=== PATIENT | male | born 1965 ===

== ENCOUNTER → 2021-03-16 10:04 | Outpatient (CLI) | payer OTHER | END | disposition home or self-care (01) | LOC: LAB 10:04 | PROVIDERS: ATTEND Emergency Medicine Pediatric Emergency Medicine | DX: Z03.818 Encounter for observation for suspected exposure to other biological agents ruled out (principal) ==

== ENCOUNTER → 2021-05-28 | Outpatient (CLI) | payer OTHER | END | disposition home or self-care (01) | LOC: LAB 08:43 | PROVIDERS: ATTEND Emergency Medicine Pediatric Emergency Medicine | DX: Z03.818 Encounter for observation for suspected exposure to other biological agents ruled out (principal) ==

== ENCOUNTER 2021-07-02 09:20 | Outpatient (CLI) | payer OTHER | END 2021-07-02 09:53 | disposition home or self-care (01) | LOC: LAB 09:20 | PROVIDERS: ATTEND General Practice | DX: U07.1 COVID-19 (principal); R05 Cough; R06.02 Shortness of breath ==

== ENCOUNTER 2021-07-02 11:00 | Outpatient (CLI) | payer OTHER | END 2021-07-02 13:00 | disposition home or self-care (01) | LOC: ASH CLINIC 11:00 | PROVIDERS: ATTEND General Practice | DX: Z23 Encounter for immunization (principal); U07.1 COVID-19 ==

== ENCOUNTER 2021-07-13 06:58 | Outpatient (CLI) | payer OTHER | END 2021-07-13 07:08 | disposition home or self-care (01) | LOC: LAB 06:58 | DX: Z03.818 Encounter for observation for suspected exposure to other biological agents ruled out (principal) ==

== ENCOUNTER 2021-09-21 08:00 | Outpatient (CLI) | payer OTHER | END 2021-09-21 08:30 | disposition home or self-care (01) | LOC: PPH VACUNA 08:00 | PROVIDERS: ATTEND Emergency Medicine Pediatric Emergency Medicine | DX: Z23 Encounter for immunization (principal) ==